=== PATIENT | male | born 1985 | race Hispanic/Latino ===

== ENCOUNTER 2017-07-17 10:46 | Emergency (ER) | payer BC | END 2017-07-17 13:11 | disposition home or self-care (01) | LOC: EDH 10:46 | DX: K91.840 Postprocedural hemorrhage of a digestive system organ or structure following a digestive system procedure (principal) | CPT/HCPCS: 99281 ==

== ENCOUNTER 2023-04-17 17:24 | Emergency (ER) | payer BC ==
[~2023-04-17] VITALS: Ht 182.9 cm; Wt 111.1 kg
[2023-04-17] MEDS ORDERED: LIDOCAINE HCL 1% 20 ML VIAL INJ SCH (19:30)
[2023-04-17] MEDS ORDERED: DIPH,PERTUSS(ACELL),TET VAC/PF 0.5 ML VIAL IM ONE (19:30)
[2023-04-17] MEDS ORDERED: ACETAMINOPHEN 325 MG TAB PO ONE (19:30)
[2023-04-17] MEDS ORDERED: IBUP-1493 PO (21:16)
[2023-04-17 21:25] LABS: HEMATOCRIT 42.4 % (42-54); MEAN CORPUSCULAR HEMOGLOBIN 28.3 pg (27.0-33.0); MEAN CORPUSCULAR VOLUME 83.3 fL (79-99); PLATELET COUNT (AUTO) 311 K/uL (130-400); RED BLOOD CELL COUNT(AUTO) 5.09 MIL/uL (4.50-6.20); RED CELL DISTRIBUTION WIDTH 13.5 % (11.0-15.5); WHITE BLOOD COUNT (AUTO) 8.9 K/uL (4.8-10.8)
[2023-04-17 21:27] VITALS: BP 131/82; PULSE 80; RESP 18; O2SAT 98
[2023-04-17 21:38] LABS: INR <= 0.93 (0.85-1.15); PROTHROMBIN TIME 10.6 SEC (9.6-11.6)
[2023-04-17 21:39] LABS: PARTIAL THROMBOPLASTIN TIME 26.8 SEC (26.3-35.5)
[2023-04-17 21:46] LABS: CREATININE 1.1 mg/dL (0.5-1.5); POTASSIUM 3.7 mmol/L (3.5-5.1)
[2023-04-17 21:52] LABS: ALBUMIN 4.2 g/dL (3.5-5.0); BILIRUBIN,TOTAL 0.3 mg/dL (0.2-1.0); TOTAL PROTEIN, SERUM 8.3 g/dL (6.0-8.3)
[2023-04-17 21:53] LABS: BASOPHILS # (AUTO) 0.03 K/uL (0.00-0.20); BASOPHILS % (AUTO) 0.3 % (0.0-5.0); EOSINOPHILS # (AUTO) 0.01 K/uL (0.00-0.70); EOSINOPHILS % (AUTO) 0.1 % (0.0-8.0); IMMATURE GRANULOCYTE ABSOLUTE 0.03 K/uL (0-1); LYMPHOCYTES # (AUTO) 1.3 K/uL (1.0-4.8); LYMPHOCYTES % (AUTO) 15.5 % (21.0-51.0); MONOCYTES # (AUTO) 0.5 K/uL (0.1-1.0); MONOCYTES % (AUTO) 5.6 % (3.0-13.0); NEUTROPHILS # (AUTO) 6.7 K/uL (1.8-7.7); NEUTROPHILS % (AUTO) 78.2 % (40.0-77.0)
== END 2023-04-17 22:16 | disposition home or self-care (01) ==
LOC: EDH 17:24
DX: S01.01XA Laceration without foreign body of scalp, initial encounter (principal); I10 Essential (primary) hypertension; Z79.1 Long term (current) use of non-steroidal anti-inflammatories (NSAID); W18.39XA Other fall on same level, initial encounter; Y93.01 Activity, walking, marching and hiking; Y92.89 Other specified places as the place of occurrence of the external cause; Y99.8 Other external cause status
CPT/HCPCS: 12004; 36415; 70450; 72125; 80053; 85025; 85610; 85730; 90471; 90715

== ENCOUNTER 2025-03-20 19:39 | Emergency (ER) | payer BC ==
[~2025-03-20] VITALS: Ht 182.9 cm; Wt 113.4 kg
[~2025-03-20 19:39] MED LIST: IBUP-1493 PO
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
[2025-03-20] MEDS: SILVER SULFADIAZINE CREAM 50 GM TP STA (20:38)
--- NOTE | 2025-03-20 20:45 | NUR ---
WOUND DRESSED WITH SILVADENE CREAM, 4/4 GAUZE AND WRAPPED WITH KERLIG GAUZE
[2025-03-20 20:49] VITALS: BP 139/83; PULSE 84; RESP 16; TEMP 98.2; O2SAT 96
== END 2025-03-20 20:50 | disposition home or self-care (01) ==
LOC: EDH 19:39
DX: T25.131A Burn of first degree of right toe(s) (nail), initial encounter (principal); T25.121A Burn of first degree of right foot, initial encounter; I10 Essential (primary) hypertension; Z79.1 Long term (current) use of non-steroidal anti-inflammatories (NSAID); Z98.890 Other specified postprocedural states; X11.8XXA Contact with other hot tap-water, initial encounter; Y93.89 Activity, other specified; Y92.89 Other specified places as the place of occurrence of the external cause; Y99.8 Other external cause status
CPT/HCPCS: 16000; 90471; 90714; 99284